=== PATIENT | male | born 1960 | race Caucasian/White ===

== ENCOUNTER 2018-05-13 10:52 | Emergency (ER) | payer OTHER ==
[2018-05-13] MEDS: NAPROXEN 250 MG TAB PO (13:57)
== END 2018-05-13 15:51 | disposition home or self-care (01) ==
LOC: M ED 10:52
DX: S70.01XA Contusion of right hip, initial encounter (principal); S70.11XA Contusion of right thigh, initial encounter; S50.01XA Contusion of right elbow, initial encounter; W01.0XXA Fall on same level from slipping, tripping and stumbling without subsequent striking against object, initial encounter; Y92.89 Other specified places as the place of occurrence of the external cause; I10 Essential (primary) hypertension
CPT/HCPCS: 73080